=== PATIENT | male | born 1985 | race Caucasian/White ===

== ENCOUNTER 2018-01-06 20:41 | Emergency (ER) | payer SELFPAY ==
[2018-01-06 20:46] VITALS: BP 123/64
--- NOTE | 2018-01-06 20:58 | EDPHY ---
H & P Stated Complaint: "Bug bites all over x2days" Source: Patient Exam Limitations: No limitations - Personal History Current Tetanus Diphtheria and Acellular Pertussis (TDAP): Yes - Medical/Surgical History Hx Asthma: No Hx Chronic Respiratory Disease: No Hx Diabetes: No Hx Cardiac Disease: No Hx Renal Disease: No Hx Cirrhosis: No Hx Alcoholism: No Hx HIV/AIDS: No Hx Splenectomy or Spleen Trauma: No Other PMH: denies - Social History Smoking Status: Never smoked Time Seen by Provider: 01/06/18 20:57 HPI/ROS: HPI: This is a 32-year-old male who presents with Chief Complaint: Bug bites all-over x2 days Location: body Quality: bug bites Duration: 2 days Signs and Symptoms: no fever, no nausea, no vomiting, no diarrhea, no urinary symptoms, no chest pain, no shortness of breath, no wheezing, no cough, no sore throat, no neck stiffness, no joint pain, no swollen glands, no ear pain, no rash Timing: worsening Severity: mild to moderate Context: Patient reports that he went hiking around December 28 and presents today with worsening bug bites over the last 2 days over his lower legs groin elbow creases and hands fingers. He reports that they are extremely itchy. He is concerned that they may be coming infected. He is unsure if he was bit by mosquitos or even a spider. He has not slept in any hotels but he does live and "crappy apartment." Modifying Factors: He has not tried [id number] Benadryl Comment: ROS: see HPI Constitutional: + fever, no chills, no weight loss Eyes: No blurred vision Respiratory: No shortness of breath, no cough Cardiovascular: No chest pain, no palpitations Gastrointestinal: No nausea, no vomiting, no diarrhea, no hematemesis, no blood in stool Genitourinary: No dysuria, no blood in urine Extremities: No myalgias, no edema Neurologic: No weakness, no numbness Skin: No rashes, no petechiae Hematologic: No bruising, no bleeding MEDICAL/SURGICAL/SOCIAL HISTORY: Medical history: Generally healthy. Does not take any regular medications. Surgical history: Denies Social history: Never smoked. Family history noncontributory. CONSTITUTIONAL: Extremely polite and cooperative adult white male, awake and alert, no obvious distress HEENT: Atraumatic and normocephalic, PERRL, EOMI. Nares patent; no rhinorrhea; no nasal mucosal edema. Tympanic membranes clear. Oropharynx clear, no exudate and moist pink mucosa. Airway patent. No lymphadenopathy. No meningismus. Cardiovascular: Normal S1/S2, regular rate, regular rhythm, without murmur rub or gallop. PULMONARY/CHEST: Symmetrical and nontender. Clear to auscultation bilaterally. Good air movement. No accessory muscle usage. ABDOMEN: Soft, nondistended, nontender, no rebound, no guarding, no peritoneal signs, no masses or organomegaly. No CVAT. EXTREMITIES: 2/2 pulses, strength 5/5, no deformities, no clubbing, no cyanosis or edema. NEUROLOGICAL: no focal neuro deficits. GCS 15. SKIN: Warm and dry, scattered linear lesions that her pinpoint in nature between the finger webs as well as on the hips and groin. Lower leg show mildly erythematous infected bug bites. No petechiae. Good capillary refill. (Kanchan Alvares) Constitutional: Initial Vital Signs Temperature (C) 36.7 C 01/06/18 20:44 Heart Rate 92 01/06/18 20:44 Respiratory Rate 19 01/06/18 20:44 Blood Pressure 123/64 H 01/06/18 20:44 O2 Sat (%) 96 01/06/18 20:44 O2 Delivery Mode Room Air Allergies/Adverse Reactions: No Known Allergies Allergy (Unverified 01/06/18 20:46) Home Medications: Medication Instructions Recorded Cephalexin [Keflex (*)] 500 mg PO QID #28 cap 01/06/18 Permethrin 5% [Elimite 5%] 1 trey TP ONCE #60 g 01/06/18 hydrOXYzine HCL [hydrOXYzine HCL 25 mg PO Q8 PRN #12 tab 01/06/18 (RX)] Medical Decision Making ED Course/Re-evaluation: Patient given Keflex and Benadryl. Will treat for scabies as well as infected bug bites. No signs of anaphylaxis, airway compromise, respiratory distress. This patient was seen under the supervision of my secondary supervising physician. I evaluated care for this patient independently. Discussed this patient with Dr. Damico. (Kanchan Alvares) I did not see this patient while he was in the emergency department. However his care was discussed with the PA while the patient was in the department. I agree with treatment plan and management (Rakesh Damico) Differential Diagnosis: Differential diagnosis includes but is not limited to scabies, cellulitis, bug bites. (Kanchan Alvares) - Data Points Medications Given: Discontinued Medications Diphenhydramine HCl (Benadryl) 50 mg PO EDNOW ONE Stop: 01/06/18 21:08 Last Admin: 01/06/18 21:12 Dose: 50 mg Departure - Departure Disposition: Home, Routine, Self-Care Clinical Impression: Bug bite with infection Qualifiers: Encounter type: initial encounter Qualified Code(s): W57.XXXA - Bitten or stung by nonvenomous insect and other nonvenomous arthropods, initial encounter Condition: Good Instructions: Insect Bite or Sting (ED), Scabies (ED) Additional Instructions: 1. Wash daily with mild soap and water; then pat dry. 2. Take Benadryl 25-50 mg every 4-6 hours as needed for itching. 3. Take Keflex 4 times a day x7 days. Do not skip a dose. 4. Use Hydroxyzine every 8 hr as needed for itching if not relieved by Benadryl. 5. Use Permethrin cream once. Referrals: NONE *PRIMARY CARE P,. [Primary Care Provider] - As per Instructions Prescriptions: Cephalexin [Keflex (*)] 500 mg PO QID #28 cap hydrOXYzine HCL [hydrOXYzine HCL (RX)] 25 mg PO Q8 PRN #12 tab PRN Reason: Itching Permethrin 5% [Elimite 5%] 1 trey TP ONCE #60 g
[2018-01-06] MEDS ORDERED: diphenhydrAMINE 25 MG CAP PO ONE (21:07)
== END 2018-01-06 21:20 | disposition home or self-care (01) ==
DX: S80.861A Insect bite (nonvenomous), right lower leg, initial encounter (principal); S80.862A Insect bite (nonvenomous), left lower leg, initial encounter; W57.XXXA Bitten or stung by nonvenomous insect and other nonvenomous arthropods, initial encounter; Y99.8 Other external cause status; Y93.01 Activity, walking, marching and hiking